=== PATIENT | male | born 1975 ===

== ENCOUNTER 2018-03-30 09:06 | Emergency (ER) | payer OTHER ==
[~2018-03-30] VITALS: Ht 182.9 cm; Wt 81.6 kg
[2018-03-30] MEDS ORDERED: ZESTRIL2.5 MG (09:12)
[2018-03-30] MEDS ORDERED: COZAAR25 MG (09:12)
[2018-03-30] MEDS ORDERED: IBUPROFEN800 MG PO (15:11)
[2018-03-30] MEDS ORDERED: AMOX1TAB5 PO (15:11)
[2018-03-30] MEDS ORDERED: CLEOCIN HCL300 MG PO (15:11)
== END 2018-03-30 15:58 | disposition home or self-care (01) ==
LOC: ER 09:06
DX: H60.392 Other infective otitis externa, left ear (principal); R68.84 Jaw pain; T81.4XXS Infection following a procedure, sequela; Y83.8 Other surgical procedures as the cause of abnormal reaction of the patient, or of later complication, without mention of misadventure at the time of the procedure